=== PATIENT | female | born 1975 | race Caucasian/White ===

== ENCOUNTER 2019-05-09 17:44 | Inpatient (IN) | payer SELFPAY ==
[2019-05-09] VITALS (8 sets, daily range): BP systolic 146–185; BP diastolic 69–97; PULSE 92–108; TEMP 98.4–98.5
[~2019-05-09] VITALS: Ht 152.4 cm; Wt 51.9 kg
[2019-05-09 19:43] LABS: BASO # 0.1 (0.0-0.2); BASO % 0.2 % (0.0-2.0); GRAN # 23.2 (1.4-6.5); GRAN % 94.2 % (42.2-75.2); HEMATOCRIT 43.5 % (37.0-47.0); HEMOGLOBIN 14.2 g/dl (12.5-16.0); LYMPH # 0.5 (1.2-3.4); LYMPH % 1.8 % (20.0-51.0); MEAN CELL VOLUME 82 fl (80.0-100.0); MEAN CORPUSCULAR HEMOGLOBIN 27 pg (27.0-31.0); MEAN CORPUSCULAR HGB CONC 33 g/dl (33.0-37.0); MONO # 0.8 (0.1-0.6); MONO % 3.2 % (1.7-9.3); PLATELET COUNT 485 K/mm3 (130-400); RED BLOOD COUNT 5.34 M/mm3 (4.10-5.30); REDCELL DISTRIBUTION WIDTH-CV 15.8 % (11.5-14.5)
--- NOTE | 2019-05-09 20:00 | NUR ---
Placed 16fr Jenkins catheter to BSD, immediate return of yellow urine. UA sent to lab for UDS and UA. Patient remains difficult to awaken without extreme stimulation. VS 98.4-102-20 95% on room air, B/P 171/88. NGT to right nare, air bolus done to confirm placement in upper abdomen. IVF infusing to white lumen of Rt subclavian central line without redness or swelling. Patient randomly asks for ice chips for dry mouth then falls back asleep.
--- NOTE | 2019-05-09 20:05 | NUR ---
Received patient from [facility] via EMS at 1840. Upon assessment, patient unresponsive to verbal stimuli. Sternal rub performed. Patient moves head side to side and moans with sternal rub. Dr Clark notified of patient and arrival and current status. Patient transferred with no IV access. IV access attempted numerous times by four nurses unsuccessfully. Dr Clark notified of need for IV access, states he is on his way and will assess for central line placement. 1900 Dr Clark at bedside, inserts central line. Patient remains unresponsive throughout procedure.
[2019-05-09 20:22] LABS: MUCOUS Present /lpf; PH 5 (5-8); SQUAMOUS EPITHELIAL None Seen /hpf; URINE APPEARANCE Hazy; URINE BACTERIA None Seen /hpf; URINE BILIRUBIN Negative (NEGATIVE); URINE BLOOD Negative (NEGATIVE); URINE COLOR Yellow; URINE GLUCOSE Negative (NEGATIVE); URINE KETONE Trace (NEGATIVE); URINE LEUKOCYTE ESTERASE Negative (NEGATIVE); URINE NITRATE Negative (NEGATIVE); URINE PROTEIN(semi-quant) 1+ (NEGATIVE); URINE UROBILINOGEN Negative (NEGATIVE)
[2019-05-09 20:27] LABS: TRICYCLIC ANTIDEPRESS URINE NEGATIVE
[2019-05-09 20:38] LABS: ALBUMIN 4.4 gm/dL (3.5-5.0); BILIRUBIN,TOTAL 0.4 mg/dL (0.0-1.0); CALCIUM 9.5 mg/dL (8.4-10.2); CREATININE, serum 0.77 (0.52-1.25); POTASSIUM 4.1 mmol/L (3.4-5.0); TOTAL PROTEIN 8.4 gm/dL (6.4-8.2)
[2019-05-09 20:44] LABS: COLLECTION METHOD CATHETER
--- NOTE | 2019-05-09 21:11 | NUR ---
PARENTS NICKOLAS AND JAMES AT BEDSIDE. CONSENT SIGNED BY THE MOTHER NICKOLAS CHARLES FOR PTS SURGERY TONIGHT, PATIENT IS SEDATED.
--- NOTE | 2019-05-09 21:46 | NUR ---
TO SURGERY PER BED.
--- NOTE | 2019-05-09 23:05 | NUR ---
RETURNS FROM SURGERY PER BED. IS ALERT AND ORIENTED. PLACEMENT CONFIRMED OF NGT WITH AIR BOLUS, GOOD SOUNDS NOTED IN ABDOMEN.
[2019-05-10] VITALS (12 sets, daily range): BP systolic 143–176; BP diastolic 64–85; PULSE 76–95; TEMP 97.6–99.3
--- NOTE | 2019-05-10 01:30 | NUR ---
Patient whimpering, trying to clear her throat and complaining about the tube in her throat. Reports aching to her stomach. Medicated with Toradol 30mg IV and Morphine 2mg IV at this time. NGT placement rechecked with air bolus, confirmed in stomach. HOB elevated.
--- NOTE | 2019-05-10 02:49 | NUR ---
PATIENT WITH OCC. WHIMPERS, RESTING AT THIS TIME.
--- NOTE | 2019-05-10 04:44 | NUR ---
Patient reports pain to head and abdomen, 8/10. Medicated with Morphine 2mg IVP at this time. Patient is alert and oriented 3. NGT with scant drainage. Jenkins patent with yellow urine. Alcohol detox score is 2. IVF infusing to Rt TLC without redness or swelling.
--- NOTE | 2019-05-10 05:37 | NUR ---
Placed LR on hold while MVI bag infusing.
--- NOTE | 2019-05-10 06:00 | NUR ---
Alcohol detox score 2. Patient resting, appropriate when awake.
[2019-05-10 06:44] LABS: MEAN CELL VOLUME 84 fl (80.0-100.0); MEAN CORPUSCULAR HGB CONC 32 g/dl (33.0-37.0); MEAN PLATELET VOLUME 10.4 fl (7.4-10.4); PLATELET COUNT 421 K/mm3 (130-400); RED BLOOD COUNT 4.23 M/mm3 (4.10-5.30)
[2019-05-10 06:51] LABS: CALCIUM 8.1 mg/dL (8.4-10.2); CREATININE, serum 0.72 (0.52-1.25); POTASSIUM 4.4 mmol/L (3.4-5.0)
[2019-05-10 06:53] LABS: HEMATOCRIT 35.5 % (37.0-47.0); HEMOGLOBIN 11.3 g/dl (12.5-16.0); MEAN CORPUSCULAR HEMOGLOBIN 27 pg (27.0-31.0)
--- NOTE | 2019-05-10 07:28 | NUR ---
CALLED AND NOTIFIED OF CRITICAL HBG RESULT OF 11.3. NO ORDERS GIVEN AT THIS TIME.
--- NOTE | 2019-05-10 08:00 | NUR ---
PATIENT IS RESTING IN BED MOANING. PATIENT IS A&OX4. VSS. BOWEL SOUNDS ACTIVE ALL FOUR QUADRANTS. ABDOMEN IS DISTENDED BUT SOFT TO PALPATION. PATIENT STATES THAT SHE FEELS NAUSEATED. PATIENT GIVEN PRN DOSE OF ZOFRAN. ABDOMINAL LAP SITES X2 DRESSED WITH BANDAIDS AND ARE CD&I. 12 NAURUAN NG TUBE TO LIS WITH SCANT AMOUNTS OF BROWN DRAINAGE PRESENT IN NG CANISTER. INDWELLING MORAN CATHETER TO DEPENDENT DRAINAGE WITH SMALL AMOUNTS OF CLEAR YELLOW URINE PRESENT IN MORAN BAG. CENTRAL LINE TO RIGHT SUBCLAVIAN WITH IV FLUIDS INFUSING VIA IV PUMP. POSITIVE PEDAL PULSES EQUAL BILATERALLY. SCD'S TO BLE. CALL LIGHT WITHIN REACH. PATIENT DENIES ANY OTHER NEEDS AT THIS TIME.
[2019-05-10 08:57] LABS: BAND 12 % (0-10); LYMPHOCYTE 4 % (20.0-51.0); NEUTROPHILS 84 % (42.0-75.2); PLATELET ESTIMATE INCREASED (NORMAL)
[2019-05-10 08:58] LABS: ANISOCYTOSIS 1+
--- NOTE | 2019-05-10 12:45 | NUR ---
PATIENT'S NG TUBE DISCONTINUED PER DR. ALCOCER ORDERS. PATIENT TOLERATED WELL. NO OTHER NEEDS AT THIS TIME. PATIENT STARTED ON CLEAR LIQUIDS.
--- NOTE | 2019-05-10 16:27 | NUR ---
SW attempted to meet with the patient. The patient was sleeping. Also present in the patient's room was her boyfriend (Jaquan) and her father (George). The patient's boyfriend reports that she lives alone in [place] and has not been working. He states that she has two adult children. He reports that she is independent with ADLs and does not use any DME. SW to follow up with the patient when she is awake and alert.
--- NOTE | 2019-05-10 19:30 | NUR ---
Pt. laying in bed with eyes closed, respirations are equal and unlabored. Pt. arousable to verbal stimuli. Pt. is A&OX3, assessment complete at this time. Pt. denies pain at this time. Call light within reach.
[2019-05-11] VITALS (15 sets, daily range): BP systolic 129–182; BP diastolic 57–84; PULSE 77–99; TEMP 97.7–99
[2019-05-11 05:56] LABS: HEMOGLOBIN 10.5 g/dl (12.5-16.0); MEAN CELL VOLUME 85 fl (80.0-100.0); MEAN CORPUSCULAR HEMOGLOBIN 27 pg (27.0-31.0); MEAN CORPUSCULAR HGB CONC 31 g/dl (33.0-37.0); MEAN PLATELET VOLUME 10.2 fl (7.4-10.4); PLATELET COUNT 353 K/mm3 (130-400); RED BLOOD COUNT 3.96 M/mm3 (4.10-5.30); REDCELL DISTRIBUTION WIDTH-CV 16.3 % (11.5-14.5)
[2019-05-11 06:00] LABS: HEMATOCRIT 33.5 % (37.0-47.0)
--- NOTE | 2019-05-11 06:02 | NUR ---
Pt. slept off and on through the night. Pt. remains A&OX3. TLC to rt. Subclavian remains patent. Pt. denies needs at this time. Call light within reach.
[2019-05-11 06:07] LABS: ALBUMIN 2.6 gm/dL (3.5-5.0); BILIRUBIN,TOTAL 0.1 mg/dL (0.0-1.0); CALCIUM 7.9 mg/dL (8.4-10.2); CREATININE, serum 0.6 (0.52-1.25); POTASSIUM 3.6 mmol/L (3.4-5.0); TOTAL PROTEIN 5.4 gm/dL (6.4-8.2)
[2019-05-11 06:29] LABS: ANISOCYTOSIS 1+; BAND 6 % (0-10); EOSINOPHIL 4 % (0-4); LYMPHOCYTE 11 % (20.0-51.0); NEUTROPHILS 73 % (42.0-75.2); PLATELET ESTIMATE NORMAL (NORMAL)
[2019-05-11 06:30] LABS: HYPOCHROMIA 1+; OVALOCYTES 1+
--- NOTE | 2019-05-11 08:00 | NUR ---
PATIENT IS DROWSY AND RESTING IN BED THIS MORNING. PATIENT AROUSES EASILY TO NAME. PATIENT IS A&OX4. TACHYCARDIA NOTED, OTHERWISE VSS. ABDOMEN IS DISTENDED BUT SOFT TO PALPATION. BOWEL SOUNDS ACTIVE ALL FOUR QUADRANTS. PATIENT TOLERATING LOW FIBER DIET WITHOUT ANY COMPLAINTS OF N/V. ABDOMINAL LAP SITES X2 DRESSED WITH BANDAIDS AND ARE CD&I. POSITIVE PEDAL PULSES EQUAL BILATERALLY. SCD'S TO BLE. NON-PITTING EDEMA TO BUE AND HANDS. FINGERS REDDENED BILATERALLY. INDWELLING MORAN CATHETER TO DEPENDENT DRAINAGE DRAINING SMALL AMOUNTS OF CLEAR YELLOW URINE. CENTRAL LINE TO RIGHT SUBCLAVIAN WITH IV FLUIDS INFUSING VIA PUMP. CALL LIGHT WITHIN REACH. NO OTHER NEEDS AT THIS TIME.
--- NOTE | 2019-05-11 10:15 | NUR ---
PATIENT'S MORAN CATHETER DISCONTINUED PER DR. PINTO'S ORDERS. 10 MLS OF SALINE ASPIRATED FROM MORAN BALLOON. TIP INTACT. PATIENT TOLERATED WELL. WILL CONTINUE TO MONITOR.
--- NOTE | 2019-05-11 10:50 | NUR ---
PATIENT'S IV FLUIDS DECREASED TO 60 MLS/HR PER DR. NATARAJAN ORDERS.
--- NOTE | 2019-05-11 12:19 | NUR ---
First visit from the chicken sexer. No needs right now.
--- NOTE | 2019-05-11 14:19 | NUR ---
SALINAS met with the patient and patient's boyfriend, Jaquan, to discuss discharge plan. The patient lives alone in [place]. She states that her children live close by. She states that she does not have a PCP and that she receives her medications at [facility] or will utilize a pharmacy in [place]. She states that she has difficulties affording her meds. SALINAS discussed [facility] and the option of [facility] for primary care and how they can provide prescription assistance. The patient reports that she would be interested in being set up at the [facility] in [place]. SALINAS contacted [facility] and made an appointment for the patient on Friday, 05/17. SALINAS faxed them her medical records and informed the unit operator of the appointment. SALINAS will need to fax the patient's dc orders to [facility] ([phone]). SALINAS also addressed the patient's meth and alcohol use. The patient reports that drinking is more of her problem. SALINAS discussed inpatient and outpatient treatment. The patient reports that she is not interested in any treatment. She states that she has quit in the past and that she can do it again. The patient is also self pay. Financial counselor, Kerri, was consulted and plans to do a financial assistance application with the patient. SALINAS to continue to follow.
--- NOTE | 2019-05-11 16:30 | NUR ---
PATIENT BLADDER SCANNED POST MORAN REMOVAL. 314 MLS RESIDUAL URINE PRESENT IN THE BLADDER.
--- NOTE | 2019-05-11 16:35 | NUR ---
PATIENT VOIDED 250 MLS OF YELLOW CLEAR URINE.
--- NOTE | 2019-05-11 18:53 | NUR ---
REPORT GIVEN TO REYNA FLORES.
--- NOTE | 2019-05-11 21:30 | NUR ---
Resting in bed. Assessment complete. Lungs clear. Heart sounds normal. Bowels active x4. Pulses present throughout. Bilateral hands +1 edema with erythema present. Patient reports "my hands always look like this." Reports 8/ ABD pain. Provided with PRN morphine, PRN norco not due at this time. x2 lap sites without complications. Covered with bandaides. Denies other needs at this time. Call light in reach.
--- NOTE | 2019-05-11 23:02 | NUR ---
Patient scored 4 on detox. Provided with PRN ativan at this time. Denies other needs.
[2019-05-12] VITALS (7 sets, daily range): BP systolic 135–170; BP diastolic 53–80; PULSE 86–95; TEMP 98.2–99
--- NOTE | 2019-05-12 04:00 | NUR ---
Patient reporting pain. Provided with PRN smiley at this time. Call light in reach.
--- NOTE | 2019-05-12 07:15 | NUR ---
Patient required pain medication throughout night for ABD pain. X1 dose of PRN ativan per detox protocol. Otherwise uneventful night. Resting in bed this AM. Report given to REYNA Higgins
--- NOTE | 2019-05-12 18:11 | NUR ---
Discharge instructions reviewed with patient and friend, verbalized understanding. Discharged via wheelchair to auto/home with friend at 1810.
--- NOTE | 2019-05-13 08:47 | NUR ---
The patient discharged back home, 05/12. SALINAS faxed the patient's discharge orders to [facility] in [place]. No additional needs at this time.
== END 2019-05-12 18:10 | disposition home or self-care (01) | DRG 391 ==
LOC: SURG 17:44
PROVIDERS: Internal Medicine; ADMIT Surgery
PROC: 02HV33Z Insertion of Infusion Device into Superior Vena Cava, Percutaneous Approach (ICD-10-PCS; 2019-05-09)
PROC: 0W9F4ZZ Drainage of Abdominal Wall, Percutaneous Endoscopic Approach (ICD-10-PCS; principal; 2019-05-09 22:00)
DX: R14.0 Abdominal distension (gaseous) (principal); G92 Toxic encephalopathy; F41.9 Anxiety disorder, unspecified; F15.10 Other stimulant abuse, uncomplicated; F10.20 Alcohol dependence, uncomplicated; T50.905A Adverse effect of unspecified drugs, medicaments and biological substances, initial encounter; Y92.239 Unspecified place in hospital as the place of occurrence of the external cause; D72.829 Elevated white blood cell count, unspecified; I10 Essential (primary) hypertension; F19.10 Other psychoactive substance abuse, uncomplicated
CPT/HCPCS: 99223; 99232-AI; A4314; C1751; J0330; J0360; J0690; J1100; J1885; J2060; J2270; J2405; J2704; J7030; J7120